=== PATIENT | female | born 1955 | race African-American/Black ===

== ENCOUNTER 2020-03-10 10:23 | Emergency (ER) | payer MEDICARE, OTHER ==
[~2020-03-10] VITALS: Ht 165.1 cm; Wt 63.6 kg
[2020-03-10 10:42] VITALS: BP 145/85
[2020-03-10] MEDS ORDERED: HYDROcodone/APAP 5/325MG 1 TAB TABLET PO ONE (11:00)
[2020-03-10] MEDS ORDERED: CLINDAMYCIN IM 600 MG/4 ML VIAL. IM ONE (11:00)
--- NOTE | 2020-03-10 11:01 | PHYS DOC ---
Past Medical History Past Medical History: Arthritis Past Surgical History: Hysterectomy Smoking Status: Current Every Day Smoker Alcohol Use: Occasionally General Adult EDM: Chief Complaint: FACE PROBLEM HPI: HPI: Patient is a 65 year old female presents to ED with CC of right jaw swelling. Patient states that she has a history of dental caries and thinks that this is the cause of her swelling. Patient states that she is not been able to see a dentist for the past few days. Patient denies fever, chills, nausea, vomiting, chest pain, shortness of breath. Patient does admit to being an active smoker. Review of Systems: Review of Systems: Constitutional: Denies fever or chills. [] Eyes: Denies change in visual acuity. [] HENT: Denies nasal congestion or sore throat. Does complain of swelling to her left jaw Respiratory: Denies cough or shortness of breath. [] Cardiovascular: Denies chest pain or edema. [] Heart Score: Risk Factors: Risk Factors: DM, Current or recent (<one month) smoker, HTN, HLP, family history of CAD, obesity. Risk Scores: Score 0 - 3: 2.5% MACE over next 6 weeks - Discharge Home Score 4 - 6: 20.3% MACE over next 6 weeks - Admit for Clinical Observation Score 7 - 10: 72.7% MACE over next 6 weeks - Early Invasive Strategies Current Medications: Current Medications Medications (Trade) Dose Ordered Sig/Sriram Start Time Stop Time Status Last Admin Dose Admin Acetaminophen/ Hydrocodone Bitart (Lortab 5/325) 1 tab 1X ONCE 03/10/20 11:00 03/10/20 11:01 UNV Clindamycin Phosphate (Cleocin Im) 600 mg 1X ONCE 03/10/20 11:00 03/10/20 11:01 UNV Allergies: Allergies: Allergies Coded Allergies Type Severity Reaction Last Updated Verified Penicillins Allergy Severe rash 03/10/20 Yes codeine Allergy Severe rash 03/10/20 Yes Uncoded Allergies Type Severity Reaction Last Updated Verified steriods Allergy Severe rash 03/10/20 Physical Exam: PE: Constitutional: Well developed, well nourished, no acute distress, non-toxic appearance. [] HENT: Normocephalic, atraumatic, swelling to the left upper jaw. Patient has diffuse dental caries Eyes: EOMI Neck: Normal range of motion, Supple Respiratory: No respiratory distress Extremities: No tenderness, ROM intact Neurologic: Alert and oriented X 3 Current Patient Data: Vital Signs: Vital Signs Date Time Temp Pulse Resp B/P (MAP) Pulse Ox O2 Delivery O2 Flow Rate FiO2 03/10/20 10:42 99.1 110 20 145/85 (105) 97 Room Air 99.1 EKG: EKG: [] Radiology/Procedures: Radiology/Procedures: [] Course & Med Decision Making: Course & Med Decision Making Patient is afebrile. Vital signs are stable. Patient will be given clindamycin 600 mg IM and pain control. Patient was discharged home on clindamycin oral antibiotics. Patient instructed to follow-up with dentist tomorrow. Discussed plan of care with patient. Patient is instructed to follow up with PCP in one to 2 days. Appropriate discharge instructions given to patient to return to the ED or to seek immediate medical evaluation. Patient is instructed to return to the ED if symptoms worsen or if any concerns. Dragon Disclaimer: Dragon Disclaimer: This electronic medical record was generated, in whole or in part, using a voice recognition dictation system. Departure Departure Impression: Primary Impression: Dental caries Disposition: HOME, SELF-CARE Condition: STABLE Referrals: TOBI BAGLEY MD (PCP) Patient Instructions: Dental Caries Additional Instructions: Discussed plan of care with patient. Patient is instructed to follow up with PCP in one to 2 days. Appropriate discharge instructions given to patient to return to the ED or to seek immediate medical evaluation. Patient is instructed to return to the ED if symptoms worsen or if any concerns. Please follow-up with dentist tomorrow. Scripts Hydrocodone/Apap 5-325 (NORCO 5-325 TABLET) 1 Each Tablet 1 TAB PO Q4-6HRS, #15 TAB Prov: SHABNAM NUÑEZ DO 03/10/20 Clindamycin Hcl (CLEOCIN HCL) 300 Mg Capsule 300 MG PO QID for 10 Days, #40 CAP Prov: SHABNAM NUÑEZ DO 03/10/20 Justicifation of Admission Dx: Justifications for Admission: Justification of Admission Dx: No SHABNAM NUÑEZ DO Mar 10, 2020 11:01
[2020-03-10] MEDS ORDERED: CLIN300C3 PO (11:33)
[2020-03-10] MEDS ORDERED: HYDR-3164 PO (11:33)
== END 2020-03-10 12:40 | disposition home or self-care (01) ==
LOC: ER 10:23
DX: K02.9 Dental caries, unspecified (principal); F17.200 Nicotine dependence, unspecified, uncomplicated; Z88.0 Allergy status to penicillin; Z88.5 Allergy status to narcotic agent; Z88.8 Allergy status to other drugs, medicaments and biological substances
CPT/HCPCS: 96372; 99283; J3490